=== PATIENT | female | born 1990 | race American Indian/Alaskan Native ===

== ENCOUNTER 2018-04-08 03:44 | Emergency (ER) | payer BC ==
[2018-04-08] MEDS ORDERED: DECADRON ONE (04:19)
[2018-04-08] MEDS ORDERED: PEPCID IV ONE ×2 (04:19→04:30)
[2018-04-08] MEDS ORDERED: DECADRON IM ONE ×2 (04:30→04:33)
--- NOTE | 2018-04-08 06:35 | Emergency Department Report ---
HPI - General Chief Complaint: Allergic Reaction Time Seen by Provider: 04/08/18 06:28 - HPI HPI: Patient states she was at a [place] this evening eating trap started to experience itching and blisters are upper lip patient took Benadryl long-st anding presents tonight for treatment for allergic reaction there is no shortness of breath no wheezing no stridor no facial or throat swelling airways patent patient denies chest pain or nausea and vomiting patient given Decadron and Pepcid upon arrival to ED and symptoms have resolved ED Past Medical Hx - Past Medical History Previous Medical History?: No - Surgical History Past Surgical History?: No - Social History Smoking Status: Unknown if ever smoked Substance Use Type: None - Medications Home Medications: Home Medications Medication Instructions Recorded Confirmed Last Taken Type Dexamethasone [Decadron] 4 mg PO Q12H 4 Days #4 tablet 04/08/18 Unknown Rx EPINEPHrine [Epipen 2-John] 0.3 mg IJ PRN PRN #1 auto.injct 04/08/18 Unknown Rx Famotidine [Pepcid] 20 mg PO BID 7 Days #14 tablet 04/08/18 Unknown Rx diphenhydrAMINE [Benadryl CAP] 25 mg PO Q8HR 7 Days #21 capsule 04/08/18 Unknown Rx ED Review of Systems ROS: Stated complaint: ALLERGIC REACTION Other details as noted in HPI Constitutional: malaise. denies: chills, fever Eyes: denies: eye pain, eye discharge, vision change ENT: other (oral swelling ) Respiratory: denies: cough, shortness of breath, wheezing Cardiovascular: denies: chest pain, palpitations Endocrine: no symptoms reported Gastrointestinal: denies: abdominal pain, nausea, diarrhea Genitourinary: denies: urgency, dysuria, discharge Musculoskeletal: denies: back pain, joint swelling, arthralgia Skin: lesions (lip upper ), pruritus. denies: rash Neurological: denies: headache, weakness, paresthesias Psychiatric: denies: anxiety, depression Hematological/Lymphatic: denies: easy bleeding, easy bruising Physical Exam - Physical Exam Vital Signs: Vital Signs 04/08/18 04:02 Temperature 98.1 F Pulse Rate 85 Respiratory 18 Rate Blood Pressure 145/101 O2 Sat by Pulse 100 Oximetry General: Patient appears well-hydrated well-nourished with no acute distress respirations are even and nonlabored is no wheezing or stridor Physical Exam: ENT is normal TMs are clear no erythema nares are patent no postnasal drip ph arynx is patent no erythema no lesions no exudate . 2 small upper lip blisters less than 1 cm there is no fever is no stridor no palpable lungs are clear throughout no wheezing abdomen soft nontender patient is alert and oriented 3 ED Course Vital Signs 04/08/18 04:02 Temperature 98.1 F Pulse Rate 85 Respiratory 18 Rate Blood Pressure 145/101 O2 Sat by Pulse 100 Oximetry ED Medical Decision Making - Medical Decision Making Symptoms have resolved after self administered Benadryl , and Decadron and Pepcid given in ED plan DC to home Decadron by mouth 2 days Benadryl and Pepcid 7 days discussed use of EpiPen EpiPen will be prescribed for trigger foods such as sharp follow-up with PCP in 2 days return to emergency department should symptoms worsen or return patient verbalized agreement and understanding of plan will be DC'd to home in stable condition at this time, pt with htn episode, likely related to symptoms on arrival repeat hr: 68, bp: 142/72, O2 sat 99Z% r/a, resp: 16 rpm at this time Critical care attestation.: If time is entered above; I have spent that time in minutes in the direct care of this critically ill patient, excluding procedure time. ED Disposition Clinical Impression: Allergic reaction Qualifiers: Encounter type: initial encounter Qualified Code(s): T78.40XA - Allergy, unspecified, initial encounter Disposition: DC-01 TO HOME OR SELFCARE Is pt being admited?: No Does the pt Need Aspirin: No Condition: Stable Instructions: Food Allergy (ED), Allergies (ED), Epinephrine (Injection) Prescriptions: Dexamethasone [Decadron] 4 mg PO Q12H 4 Days #4 tablet diphenhydrAMINE [Benadryl CAP] 25 mg PO Q8HR 7 Days #21 capsule EPINEPHrine [Epipen 2-John] 0.3 mg IJ PRN PRN #1 auto.injct PRN Reason: severe allergic reaction Famotidine [Pepcid] 20 mg PO BID 7 Days #14 tablet Referrals: [facility] [Outside] - 3-5 Days Forms: Work/School Release Form(ED) Time of Disposition: 06:39
[2018-04-08 07:14] VITALS: BP 139/93
== END 2018-04-08 07:15 | disposition home or self-care (01) ==
LOC: ED 03:44
DX: T78.40XA Allergy, unspecified, initial encounter (principal); X58.XXXA Exposure to other specified factors, initial encounter
CPT/HCPCS: 96372; 96374; 99282; J1100